=== PATIENT | female | born 1965 | race Caucasian/White ===

== ENCOUNTER 2020-03-02 08:14 | Emergency (ER) | payer OTHER ==
[2020-03-02 08:57] VITALS: BP 154/78
--- NOTE | 2020-03-02 09:01 | UC ---
Nausea/Vomiting/Diarrhea HPI - HPI Summary HPI Summary: 54-year-old woman comes in with a chief complaint of diarrhea. Patient felt well yesterday. This morning when she passed some gas she actually ended up having diarrhea. Does have some abdominal cramping which is mild. Did not see any blood in the diarrhea. No fevers or chills no runny nose no sore throat no cough or body aches. She would like to get tested for Covid. No known contacts. - History of Current Complaint Chief Complaint: UCGI Stated Complaint: TESTING Time Seen by Provider: 03/02/20 08:36 Pain Intensity: 0 - Allergies/Home Medications Allergies/Adverse Reactions: Allergies Allergy/AdvReac Type Severity Reaction Status Date / Time No Known Allergies Allergy Verified 03/02/20 08:31 Home Medications: Home Medications NK [No Home Medications Reported] 03/02/20 [History Confirmed 03/02/20] PMH/Surg Hx/FS Hx/Imm Hx Previously Healthy: Yes - Surgical History Surgical History: Yes Surgery Procedure, Year, and Place: csection - Family History Known Family History: Positive: Non-Contributory - Social History Alcohol Use: Rare Substance Use Type: None Smoking Status (MU): Light Every Day Tobacco Smoker Type: Cigarettes Amount Used/How Often: <1 ppd Length of Time of Smoking/Using Tobacco: many years Review of Systems All Other Systems Reviewed And Are Negative: Yes Constitutional: Positive: Negative Skin: Positive: Negative Eyes: Positive: Negative ENT: Positive: Negative Respiratory: Positive: Negative Cardiovascular: Positive: Negative Gastrointestinal: Positive: Abdominal Pain, Diarrhea Genitourinary: Positive: Negative Motor: Positive: Negative Neurovascular: Positive: Negative Musculoskeletal: Positive: Negative Neurological/Mental Status: Positive: Negative Psychological: Positive: Negative Is Patient Immunocompromised?: No Physical Exam Triage Information Reviewed: Yes Appearance: Well-Appearing, No Pain Distress, Well-Nourished Vital Signs: Initial Vital Signs Temp 98.7 F 03/02/20 08:27 Pulse 60 03/02/20 08:27 Resp 12 03/02/20 08:27 BP 154/78 03/02/20 08:27 Pulse Ox 99 03/02/20 08:27 Vital Signs Reviewed: Yes Eye Exam: Normal Eyes: Positive: Conjunctiva Clear ENT: Negative: Nasal congestion, Nasal drainage Neck: Positive: Supple Respiratory: Positive: Lungs clear, Normal breath sounds, No respiratory distress Musculoskeletal: Positive: Strength Intact, ROM Intact Neurological: Positive: Alert, Muscle Tone Normal Psychological: Positive: Age Appropriate Behavior Skin Exam: Normal Naus/Vom/Diarrhea Course/Dx - Course Course Of Treatment: At this time patient has mild abdominal cramping. There is no blood in the diarrhea. Covid results are pending. Patient will several isolate. Discussed that if the abdominal pain got worse or the diarrhea had blood in it or any other abdominal complaints she should get reevaluated. Also she got worse with any potential Covid symptoms we discussed getting reevaluated if she got short of breath. - Differential Dx/Diagnosis Provider Diagnosis: Diarrhea Condition At Discharge: Stable Discharge ED - Sign-Out/Discharge Documenting (check all that apply): Patient Departure All imaging exams completed and their final reports reviewed: No Studies - Discharge Plan Condition: Stable Disposition: HOME Patient Education Materials: Acute Diarrhea (ED) Forms: COVID-19 Tested & Isolation Referrals: Raquel Wells [Primary Care Provider] - Additional Instructions: MAINTAIN AT HOME ISOLATION UNTIL YOU GET YOUR COVID RESULTS. FOLLOW UP WITH YOUR DOCTOR IF NOT COMPLETELY IMPROVED. GO TO THE EMERGENCY DEPARTMENT IF WORSE; SHORTNESS OF BREATH, ABDOMINAL PAIN, BLOOD IN YOUR DIARRHEA, YOU FEEL LIKE PASSING OUT OR ANY QUESTIONS OR CONCERNS. - Billing Disposition and Condition Condition: STABLE Disposition: Home
== END 2020-03-02 09:05 | disposition home or self-care (01) ==
LOC: UCCORT 08:14
DX: R19.7 Diarrhea, unspecified (principal); Z20.828 Contact with and (suspected) exposure to other viral communicable diseases; F17.210 Nicotine dependence, cigarettes, uncomplicated
CPT/HCPCS: 87635; 99201; G0463; U0003